=== PATIENT | female | born 1965 | race Caucasian/White ===

== ENCOUNTER 2024-03-17 12:09 | Outpatient (CLI) | payer BC ==
[2024-03-17 14:43] LABS: #Basophils 0.07 10x3/uL (0.0-0.2); %Basophils 1.2 % (0.0-1.0); %Eosinophils 2.8 % (0.0-10.0); %Lymphocytes 36.9 % (21.0-51.0); %Monocytes 12.8 % (0.0-10.0); %Neutrophils 46.1 % (42.0-75.0); Hemoglobin 13.1 g/dL (12.0-16.0); Mean Corpuscular HGB CONC 34.5 g/dL (32.0-36.0); Mean Platelet Volume 11.3 fL (7.4-10.4); Platelet Count 329 10x3/uL (130-400); RBC Distribution Width 12.6 % (11.5-14.5); Red Blood Cell (RBC) Count 4.37 mill/uL (4.20-5.40)
[2024-03-17 15:01] LABS: Anion Gap 11 mmol/L (10-20); BUN (Urea Nitrogen) 13 mg/dL (9.8-20.1); Calc. Creatinine Clearance 0 mL/min (70-130); Calcium 9.5 mg/dL (7.8-10.44); Carbon Dioxide 26 mmol/L (22-29); Chloride 107 mmol/L (98-107); Estimated GFR 96; Glucose 91 mg/dL (70-105); Potassium 4.2 mmol/L (3.5-5.1); Sodium 140 mmol/L (136-145)
== END 2024-03-17 12:10 | disposition home or self-care (01) ==
LOC: LABBT 12:09
PROVIDERS: ATTEND Orthopaedic Surgery
DX: Z01.818 Encounter for other preprocedural examination (principal); M17.11 Unilateral primary osteoarthritis, right knee
CPT/HCPCS: 80048; 85025; 93005; 93010

== ENCOUNTER 2024-03-21 08:54 | Day surgery (SDC) | payer BC ==
[2024-03-17 12:53] VITALS: BMI 28.8
[2024-03-21] MEDS ORDERED: Bupivacaine PF 0.5% 30 ML VIAL ONE (11:36)
[2024-03-21] MEDS ORDERED: fentaNYL 50 mcg/mL 1 mL Vial ONE ×3 (11:36→14:00)
[2024-03-21] MEDS ORDERED: Lidocaine 2% PF 5 ML VIAL ONE (11:36)
[2024-03-21] MEDS ORDERED: PROPOFOL 20 ML ONE ×2 (11:36→12:11)
[2024-03-21] MEDS ORDERED: Midazolam HCl 2 mg/2 ml Vial ONE (11:51)
[2024-03-21] MEDS ORDERED: CEFAZOLIN 2 GM VIAL ONE (12:07)
[2024-03-21] MEDS ORDERED: Ketorolac Tromethamine 30 MG (1 mL) VIAL ONE (12:11)
[2024-03-21] MEDS ORDERED: Lidocaine 1% PF 5 ML VIAL ONE (12:11)
[2024-03-21] MEDS ORDERED: Ondansetron PF 4 MG/2 ML Vial ONE (12:11)
[2024-03-21] MEDS ORDERED: Bupivacaine HCl 0.5%/Epinephrine 1:200,000/PF 30 ml Vial ONE (12:20)
[2024-03-21] MEDS ORDERED: HYDROcodone/Acetaminophen 5/325 mg Tablet ONE ×2 (14:45→16:09)
== END 2024-03-21 16:19 | disposition home or self-care (01) ==
LOC: SDC 08:54
PROVIDERS: ATTEND Orthopaedic Surgery
PROC: 3E0T3BZ Introduction of Anesthetic Agent into Peripheral Nerves and Plexi, Percutaneous Approach (ICD-10-PCS; principal; 2024-03-21)
PROC: 0SQC0ZZ Repair Right Knee Joint, Open Approach (ICD-10-PCS; principal; 2024-03-21)
PROC: 0SBC4ZZ Excision of Right Knee Joint, Percutaneous Endoscopic Approach (ICD-10-PCS; principal; 2024-03-21)
DX: S83.281A Other tear of lateral meniscus, current injury, right knee, initial encounter (principal); M17.11 Unilateral primary osteoarthritis, right knee; I10 Essential (primary) hypertension; I25.10 Atherosclerotic heart disease of native coronary artery without angina pectoris; K21.9 Gastro-esophageal reflux disease without esophagitis; F41.9 Anxiety disorder, unspecified; J45.909 Unspecified asthma, uncomplicated; D64.9 Anemia, unspecified; Z90.710 Acquired absence of both cervix and uterus; Z90.49 Acquired absence of other specified parts of digestive tract; Z98.51 Tubal ligation status; Z95.5 Presence of coronary angioplasty implant and graft; Z86.16 Personal history of COVID-19; Z91.041 Radiographic dye allergy status; Z88.2 Allergy status to sulfonamides; Z88.1 Allergy status to other antibiotic agents; Z88.8 Allergy status to other drugs, medicaments and biological substances; Z79.02 Long term (current) use of antithrombotics/antiplatelets; Z79.82 Long term (current) use of aspirin; Z79.899 Other long term (current) drug therapy; X58.XXXA Exposure to other specified factors, initial encounter
CPT/HCPCS: C1713; C2613; J0665; J1885; J2250; J2405; J2704; J3010